=== PATIENT | male | born 1990 | race Caucasian/White ===

== ENCOUNTER 2017-05-09 12:13 | Emergency (ER) | payer OTHER ==
[~2017-05-09] VITALS: Ht 177.8 cm; Wt 102.0 kg
[~2017-05-09 12:13] MED LIST: AMOXICILLIN500 MG OR; DOXYCYC MONO100 M1 OR; LORTAB5 OR; MEDDOSEPAK PO; NAPROSYN500 MG PO; NO HOME MEDS; ROBITUSSIN AC10 ML OR; ULTRAM50 M1 OR; ULTRAM50 M1 PO; ULTRAM50 MG OR; VIBRAMYCIN100 MG OR
[2017-05-09 14:09] VITALS: BP 127/72
== END 2017-05-09 14:09 | disposition home or self-care (01) | DRG 605 ==
LOC: ED 12:13
DX: S01.01XA Laceration without foreign body of scalp, initial encounter (principal); F17.210 Nicotine dependence, cigarettes, uncomplicated; W22.09XA Striking against other stationary object, initial encounter; Y92.89 Other specified places as the place of occurrence of the external cause; Y99.0 Civilian activity done for income or pay

== ENCOUNTER 2018-07-28 20:21 | Emergency (ER) | payer SELFPAY ==
[~2018-07-28] VITALS: Ht 177.8 cm; Wt 90.0 kg
[2018-07-28] MEDS ORDERED: VALTREX1 GM PO (22:53)
[2018-07-28 23:05] VITALS: BP 120/70
== END 2018-07-28 23:05 | disposition home or self-care (01) | DRG 728 ==
LOC: ED 20:21
DX: A60.01 Herpesviral infection of penis (principal)

== ENCOUNTER 2018-09-03 18:10 | Emergency (ER) | payer SELFPAY ==
[~2018-09-03] VITALS: Ht 177.8 cm; Wt 90.0 kg
[~2018-09-03 18:10] MED LIST changes: +VALTREX1 GM PO
[2018-09-03] MEDS ORDERED: MEDDOSEPAK PO (18:28)
[2018-09-03 18:35] VITALS: BP 121/77
== END 2018-09-03 18:35 | disposition home or self-care (01) | DRG 607 ==
LOC: ED 18:10
DX: L23.7 Allergic contact dermatitis due to plants, except food (principal)

== ENCOUNTER 2018-09-20 16:45 | Emergency (ER) | payer SELFPAY ==
[~2018-09-20] VITALS: Ht 177.8 cm; Wt 70.0 kg
[2018-09-20 16:47] VITALS: BP 126/78
== END 2018-09-20 17:45 | disposition left against medical advice (07) | DRG 951 ==
LOC: ED 16:45 → LWOBS 17:44
DX: Z91.19 Patient's noncompliance with other medical treatment and regimen (principal)